=== PATIENT | female | born 1985 | race Two or more races ===

== ENCOUNTER 2016-09-01 12:32 | Emergency (ER) | payer OTHER ==
[2016-09-01] MEDS ORDERED: IOPAMIDOL 300 (61%) 150 ML VIAL IV ONE (12:33)
[2016-09-01 13:07] LABS: URINE BILIRUBIN NEGATIVE (NEGATIVE); URINE BLOOD 2+ (NEGATIVE); URINE GLUCOSE (UA) NEGATIVE (NEGATIVE); URINE LEUKOCYTE ESTERASE 1+ (NEGATIVE); URINE NITRITE NEGATIVE (NEGATIVE); URINE PROTEIN TRACE (NEGATIVE); URINE UROBILINOGEN NORMAL (0-1 mg/dl)
[2016-09-01 13:08] LABS: URINE APPEARANCE CLOUDY; URINE COLOR YELLOW
[2016-09-01 13:09] LABS: HCG,QUALITATIVE URINE NEGATIVE
[2016-09-01 13:13] LABS: URINE BACTERIA 3+; URINE EPITHELIAL CELLS MANY /hpf; URINE MUCUS 1+
[2016-09-01] MEDS ORDERED: SODIUM CHLORIDE 0.9% 1,000 ML ONE (13:52)
[2016-09-01] MEDS ORDERED: ONDANSETRON 4 MG/2ML 2 ML VIAL ONE (13:52)
[2016-09-01] MEDS ORDERED: KETOROLAC TROMETHAMINE 30 MG/ML 1 ML VIAL ONE (13:53)
[2016-09-01] MEDS ORDERED: PANTOPRAZOLE SODIUM 40 MG VIAL IV ONE (13:53)
[2016-09-01 14:34] LABS: ABSOLUTE NEUTROPHIL COUNT 8.5 K/mm3 (1.8-7.7); BASO # 0.1 K/mm3 (0.0-0.2); BASO % 0.6 % (0.2-1.0); EOS # 0.2 (0.0-0.5); EOS % 1.2 % (0.9-2.9); HEMATOCRIT 39.7 % (37.0-47.0); HEMOGLOBIN 13.3 gm/l (12.0-16.0); IMM NEUT% 0.3 % (0-1); LYMPH # 2.6 (1.0-4.8); LYMPH % 21.2 % (15-45); MEAN CORPUSCULAR HEMOGLOBIN 31.8 pg (27.0-31.0); MEAN CORPUSCULAR HGB CONC 33.5 g/dl (33.0-37.0); MEAN PLATELET VOLUME 10.1 fl (7.4-10.4); MONO # 0.8 (0.0-0.8); MONO % 6.5 % (4-12); NEUT % 70.2 % (43-75); PLATELET COUNT 275 K/mm3 (130-400); RED CELL DISTRIBUTION WIDTH 13.4 % (11.5-14.5)
--- NOTE | 2016-09-01 14:55 | CT ---
CT ABDOMEN AND PELVIS WITH CONTRAST HISTORY: Left flank pain. TECHNIQUE: Following intravenous administration of 125 mL Isovue-300, contiguous axial images were acquired from the lung bases to the ischial tuberosities. Oral contrast was not administered. COMPARISON:None. FINDINGS: LUNG BASES: Minor atelectatic change. No airspace consolidation or pleural effusion. LIVER: No focal lesion. SPLEEN: No focal lesion. PANCREAS: No focal lesion. ADRENAL GLANDS: No mass effect. KIDNEYS: Minor collecting system dilatation and ureteral dilatation on the left without an obvious obstructive calculus. There is, however enhancement and in inflammatory change in association with the posterior lead directed diverticulum of the descending colon with associated wall thickening, fatty stranding, and fascial thickening. No rim-enhancing abscess is identified. GALLBLADDER: Present. BOWEL: Descending colonic wall thickening and inflammatory change as above. No small bowel dilatation. Moderate proximal fecal load. APPENDIX: Grossly unremarkable. PELVIC ORGANS: No adnexal mass effect. Mild free fluid attenuation values suggesting complex fluid, recent cyst rupture on the left is possible. ABDOMINOPELVIC LYMPH NODES: No abnormally enlarged lymph nodes identified. ABDOMINAL AORTA: Normal caliber. OSSEOUS STRUCTURES: No grossly destructive lesions. Ill-defined cystic focus of the right acetabulum, 13 mm in size . IMPRESSION: 1. Wall thickening and inflammatory change consistent with descending colonic diverticulitis, no associated obstructive change or rim-enhancing abscess. 2. Irregular enhancing focus of the left ovary with mild complex free fluid, which may reflect recent cyst rupture. 3. Mild prominence of left renal collecting system without obstructive calculi. Findings discussed with Dr. Nelson of the Emergency Medicine clinical service on 09/01/2016 at 1451 hours.
[2016-09-01 15:27] LABS: I-STAT CREATININE 0.7 mg/dL (0.6-1.3)
[2016-09-01 22:04] LABS: ALB/GLOB RATIO 1.3 (>1.0); ALBUMIN 4.3 gm/dL (3.5-5.7); CALCIUM 8.9 mg/dL (8.6-10.3)
[2016-09-03 15:52] LABS: CHLAMYDIA BD Negative (Negative); N.GONORRHOEAE BD Negative (Negative); SOURCE Urine (())
== END 2016-09-01 15:59 | disposition home or self-care (01) ==
LOC: ED 12:32
DX: K57.92 Diverticulitis of intestine, part unspecified, without perforation or abscess without bleeding (principal); N83.209 Unspecified ovarian cyst, unspecified side; J45.909 Unspecified asthma, uncomplicated; F41.9 Anxiety disorder, unspecified; F32.9 Major depressive disorder, single episode, unspecified
CPT/HCPCS: 87491; 87591; 81025; 82150; 85025; 80053; 81001; 74177; 96375; 99284 ×2; 96374; C9113; J1885; J2405; J7030; Q9967